=== PATIENT | female | born 1945 | race Caucasian/White ===

== ENCOUNTER → 2022-07-27 | Outpatient (CLI) | payer OTHER ==
[~2022-07-27] MED LIST: ACET250T2 PO; ANOR1AER IN; BAYE81TA10 PO; CALC500T68 PO; CENT1TAB PO; CETI10CA13 PO; FOLI800C PO; METO25TA4 PO; OMEG100011 PO; PILO4SOL6 OS; PREDOPD OS; PROAAER10 INH; TRAV2.5D OS; TUMS500C PO; VITA200016 PO; [UNRECOGNIZED DRUG - CODE] PO
== END ==
LOC: M LABSMTC 09:37
PROVIDERS: ATTEND Anesthesiology
DX: Z01.812 Encounter for preprocedural laboratory examination (principal); Z20.822 Contact with and (suspected) exposure to COVID-19

== ENCOUNTER 2022-07-29 08:10 | Day surgery (SDC) | payer MEDICARE ==
[~2022-07-29] VITALS: Ht 157.5 cm; Wt 62.3 kg
[~2022-07-29 08:10] MED LIST changes: +LIDOCAINE 3.5 % 1ML OPHTH TOPICAL GEL OU ONE
[2022-07-29] MEDS ORDERED: TOBRAMYCIN 80MG/2ML VIAL As Ordered ONE (10:24)
[2022-07-29] MEDS ORDERED: mitoMYcin 0.2 MG/VIAL KIT FOR OPHTHALMIC USE (J7315 PER 0.2MG) As Ordered ONE (10:24)
[2022-07-29] MEDS ORDERED: BETAMETHASONE SOLUSPAN 6MG/ML 5ML VIAL (J0702 PER 3MG) As Ordered ONE (10:25)
[2022-07-29] MEDS ORDERED: TOBRADEX OPHTH SUSP 2.5 ML As Ordered ONE (10:25)
[2022-07-29] MEDS ORDERED: TOBRADEX OPHTH OINT 3.5 GM As Ordered ONE (10:26)
[2022-07-29] MEDS ORDERED: LIDOCAINE 2% W/EPINEPHRINE 20ML VIAL **PRES FREE As Ordered ONE (10:29)
[2022-07-29] MEDS ORDERED: MIDAZOLAM INJ 2MG/2ML VIAL (J2250 PER 1MG) As Ordered ONE (11:18)
[2022-07-29 11:20] VITALS: BP 180/84
[2022-07-29] MEDS ORDERED: fentaNYL 100 MCG/2 ML INJECTION As Ordered ONE (11:20)
== END 2022-07-29 11:50 | disposition home or self-care (01) ==
LOC: M SDC 08:10
PROVIDERS: ATTEND Ophthalmology
DX: H40.9 Unspecified glaucoma (principal); I11.9 Hypertensive heart disease without heart failure
CPT/HCPCS: 66183; C1783; J2250; J3010; J7315

== ENCOUNTER 2023-12-01 11:00 | Day surgery (SDC) | payer MEDICARE ==
[~2023-12-01] VITALS: Ht 157.5 cm; Wt 64.6 kg
[~2023-12-01 11:00] MED LIST changes: -LIDOCAINE 3.5 % 1ML OPHTH TOPICAL GEL OU ONE; +MIDAZOLAM INJ 2MG/2ML VIAL As Ordered ONE; +fentaNYL 100 MCG/2 ML INJECTION As Ordered ONE
[2023-12-01] MEDS: LIDOCAINE 2% W/EPINEPHRINE 20ML VIAL **PRES FREE As Ordered ONE (12:53)
[2023-12-01] MEDS: mitoMYcin 0.2 MG/VIAL KIT FOR OPHTHALMIC USE As Ordered ONE (12:55)
[2023-12-01] MEDS: LIDOCAINE 3.5 % 1ML OPHTH TOPICAL GEL OU ONE (13:02)
[2023-12-01] MEDS: TOBRADEX OPHTH OINT 3.5 GM As Ordered ONE (13:22)
[2023-12-01 13:30] VITALS: BP 197/84; TEMP 97.2; O2SAT 100
== END 2023-12-01 13:50 | disposition home or self-care (01) ==
LOC: M SDC 11:00
PROVIDERS: ATTEND Ophthalmology
DX: H40.10X1 Unspecified open-angle glaucoma, mild stage (principal); Z79.899 Other long term (current) drug therapy
CPT/HCPCS: 66183; C1783; J2250; J3010; J7315

== ENCOUNTER → 2024-07-12 | Outpatient (CLI) | payer MEDICARE ==
[~2024-07-12] MED LIST changes: +ACET250T18 PO; -ACET250T2 PO; -MIDAZOLAM INJ 2MG/2ML VIAL As Ordered ONE; -fentaNYL 100 MCG/2 ML INJECTION As Ordered ONE
== END ==
LOC: M PLAIMG 12:27
PROVIDERS: ATTEND Internal Medicine Cardiovascular Disease
DX: I35.0 Nonrheumatic aortic (valve) stenosis (principal); I27.20 Pulmonary hypertension, unspecified